=== PATIENT | male | born 1950 | race Caucasian/White ===

== ENCOUNTER 2025-05-12 12:28 | Outpatient (CLI) | payer OTHER, SELFPAY ==
--- OUTSIDE RECORDS SUMMARY | 2025-05-12 13:42 | XMS_ITS | Clinical Summary ---
Author Organization [facility] Address [address] [place] [address] Care Team Providers Care Air Export Coordinator Name Role Phone Unavailable Primary Care Provider Unavailabl e Source Comments [facility],non-owned Affiliates and Associated Physician Practices is amultiple site organization consisting of ambulatory clinics and hospital sitesin [place], [place]. This disclosure is being madepursuant to the Care Everywhere program and may not contain all information available regarding this patient. Last updated 18.[facility] Clear Advantage Collar Allergies No known active allergies Immunizations Immunization Administration Dates Next Due INFLUENZA VACCINE, HIGH-DOSE , QUADR. (FLUZONE HIGH-DOSE QUADRIVALENT; 65Y+), 0.7 ML (HD-IIV4) 04/28/2017 Social History Tobacco Use Types Packs/Day Years Used Date Smoking Tobacco: Never Assessed Sex and Gender Information Value Date Recorded Sex Assigned at Not on file Legal Sex Male 10:41 AM CDT Gender Identity Not on file Sexual Orientation Not on file Plan of Treatment Health Maintenance Due Date Last Done Comments COLOGUARD (AGES 45-75) - COL ON CA SCREENING 1951 COLON MONITORING 1951 COLONOSCOPY - COLON CA SCREENING 1951 CT COLONOGRAPHY - COLON CA SCREENING 1950 Colorectal Cancer Screening 1951 FIT - COLON CA SCREENING 1951 FLEX SIG - COLON CA SCREENING 1951 LIPID TESTING 1950 HEPATITIS C SCREENING 01/14/1969 DTAP/TDAP/TD VACCINES (1 - Tdap) 1970 PNEUMOCOCCAL VACCINE 50+ (1 of 1 - PCV) 2001 ZOSTER VACCINE (1 of 2) 2001 DEPRESSION SCREENING 07/10/2024 COVID-19 VACCINE (2023-2 5 season) 2025 INFLUENZA VACCINE (#1) 2025 04/28/2017 Respiratory Syncytial Virus (RSV) Vaccine Pt: or over 60 yrs (1 - 1-dose 75+ series) 2026 HEPATITIS B VACCINE Aged Out No longe r eligible based on patient's age to complete this topic HIB VACCINE Aged Out No longer eligi ble based on patient's age to complete this topic HPV VACCINE Aged Out No longer eligi ble based on patient's age to complete this topic MENINGOCOCCAL (Group B) VACC INE SHARED DECISION-MAKING Aged Out No longer eligibl e based on patient's age to complete this topic MENINGOCOCCAL GROUPS A/C/Y/W VACCINE Aged Out No longer eligible b ased on patient's age to complete this topic Insurance [facility] [place] Address: [address] [address]
--- OUTSIDE RECORDS SUMMARY | 2025-05-12 13:42 | XMS_ITS | Clinical Summary ---
Author Organization [facility] Address [address] [place] [address] Care Team Providers Care Associate Entertainment Editor Name Role Phone Chris Pearl MD Primary Care Provider [phone] Allergies No known active allergies Medications lovastatin (MEVACOR) 20 mg tablet Take 20 mg by mouth daily. 11 03/14/2018 Active atenolol (TENORMIN) 50 mg tablet Take 50 mg by mouth daily. 11 03/14/2018 Active NIFEDIPINE XL 90 mg 24 hr tablet Take 90 mg by mouth daily 6 2019 Active losartan-hydroc hlorothiazide (HYZAAR) 100-25 mg per tablet Take 1 tablet by mouth daily 6 02/02/2019 Active acetaminophen-c odeine (TYLENOL with CODEINE #3) 300-30 mg per tablet TAKE 1 TABLET THREE TIMES A DAY FOR 5 DAYS 04/07/2020 Active ascorbic acid, vitamin C, 500 mg capsule VITAMIN C CAPSULE 04/19/2019 Active cholecalciferol (VITAMIN D-3) 5,000 unit capsule Take by mouth 04/19/2019 Activ e cyclobenzaprine (FLEXERIL) 10 mg tablet TAKE 1 TABLET BY MOUTH THREE TIMES A DAY FOR 15 DAYS 04/07/2020 Active metaxalone (SKELAXIN) 800 mg tablet Take 800 mg by mouth 3 (three) times a day 05/28/2020 Active metaxalone (SKELAXIN) 800 mg tablet Take by mouth 04/19/2019 Activ e metFORMIN (GLUCOPHAGE) 500 mg tablet TAKE 2 TABLETS BY MOUTH IN THE MORNING AND 1 TABLET AT BEDTIME 06/09/2020 Active metFORMIN (GLUCOPHAGE) 500 mg tablet Take by mouth every 8 hours 04/19/2019 Active methylPREDNISol one (MEDROL DOSEPACK) 4 mg Dosepack TAKE 6 TABLETS ON DAY 1 DIRECTED ON PACKAGE AND DECREASE BY 1 TAB EACH DAY FOR A TOTAL OF 6 DAYS 04/28/2020 Active zinc sulfate (ZINCATE) 220 (50) mg capsule ZINC CAPSULE 04/19/2019 Active atenoloL (TENORMIN) 25 mg tablet 06/17/2020 Active Active Problems Problem Noted Date Diagnosed Date Intervertebral disc disorder with radiculopathy of lumbar region 06/18/2020 Sciatica 09/10/2018 Cervicalgia 10/03/2013 Essential (primary) hypertension 05/21/2012 Hyperlipidemia, unspecified 05/21/2012 Obesity 05/21/2012 Shortness of breath 05/21/2012 Chest pain, unspecified 07/10/1959 Immunizations Immunization Administration Dates Next Due Influenza, Quadrivalent, Hig h Dose, Preservative Free, Intrr 05/22/2020 Influenza, Quadrivalent, Spl it, Preservative Free, Intramuscular 05/24/2018 Influenza, Trivalent, High D ose, Split, Preservative Free, Intramuscular 04/09/2019 Influenza, Trivalent, Preservative Free, Intramu scular 04/09/2013 Influenza, Unspecified 04/28/2017 Surgical History Surgery Date Site/Laterality Comments BACK SURGERY Back Surgery - (Added by TW Conv) [place] NEUROPLASTY &/TRANSPOS MEDIAN NRV CARPAL TUNNE Neuroplasty Decompression Median Nerve At Carpal Tunnel - (Added by TW Conv) Medical History Medical History Date Comments Personal history of other di seases of the circulatory system History of hypertension - (A dded by TW Conv) Personal history of other di seases of the musculoskeletal system and connective tissue Personal history of osteopor osis - (Added by TW Conv) Chest pain CHF (congestive heart failure) (HCC) Type 2 diabetes mellitus Hypertension Family History Medical History Relation Name Comments Heart disease Father Heart disease Mother Heart disease Other Family history of cardiac disorder - (Added by TW Conv) Relation Name Status Comments Father Mother Other Social History Tobacco Use Types Packs/Day Years Used Date Smoking Tobacco: Never Smokeless Tobacco: Never Alcohol Use Standard Drinks/Week Comments Never 0 (1 standard drink = 0.6 oz pur e alcohol) AUDIT-C Answer Date Recorded Frequency of Alcohol Consumption Never 06/18/2020 Average Number of Drinks Not on file 020 Frequency of Binge Drinking Not on file 06/09 Personal Safety Answer Date Recorded Getting School Help Needed Not on file Sex and Gender Information Value Date Recorded Sex Assigned at Not on file Legal Sex Male 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 Gender Identity Not on file Sexual Orientation Not on file Last Filed Vital Signs Vital Sign Reading Time Taken Comments Blood Pressure 132/76 06/18/2020 9:17 AM MULTI SPINDLE OPERATOR Pulse 112 06/18/2020 9:17 AM MULTI SPINDLE OPERATOR Temperature 36.8 C (98.2 F) 04/07/2018 7:21 PM CDT Respiratory Rate 17 04/08/2018 2:30 AM CDT Oxygen Saturation 99% 04/08/2018 2:54 AM CDT Inhaled Oxygen Concentration - - Weight 99.8 kg (220 lb) 06/18/2020 9:17 AM MULTI SPINDLE OPERATOR Height 172.7 cm (5' 8) 06/18/2020 9:17 AM MULTI SPINDLE OPERATOR Body Mass Index 33.45 06/18/2020 9:17 AM MULTI SPINDLE OPERATOR Plan of Treatment Not on file Insurance MEDICARE [facility] CHOICE PLUS MEDICARE [facility] CHOICE PLUS Care Teams Associate Entertainment Editor Relationship Specialty Start Date End Date Chris Pearl MD [address] [place] [address] PCP - General Family Medicine 05/19/20
== END 2025-05-12 12:29 | disposition home or self-care (01) ==
LOC: ANHAUDIO 12:28
PROVIDERS: Visit Provider Otolaryngology
DX: H90.42 Sensorineural hearing loss, unilateral, left ear, with unrestricted hearing on the contralateral side (principal)
CPT/HCPCS: 92557; 92567

== ENCOUNTER 2025-05-19 12:04 | Outpatient (CLI) | payer OTHER, SELFPAY ==
--- OUTSIDE RECORDS SUMMARY | 2025-03-17 05:34 | XMS_ITS | Continuity of Care Document ---
Author Organization [facility] Address [address] [place] [address] Phone Care Team Providers Care Hadoop Software Engineer Name Role Phone Rojelio MURPHY, FACC, Jarad Unavailable Unavailab le Allergies, Adverse Reactions, Alerts Substance Reaction Status Criticality atorvastatin leg pain Active No Information Medications Medication Instructions Dosage Effective Dates (start - stop) Status Comments Rybelsus 3 mg tablet take 1 tablet by oral route every day - Active Nexlizet 180 mg-10 mg tablet take 1 tablet by oral route every day 1.00 tablet - Active Breztri Aerosphere 160 mcg-9mcg-4.8mcg/ac tuation HFA aerosol inhaler - Active meloxicam 15 mg tablet - Active losartan 100 mg-hydrochlorothia zide 25 mg tablet TAKE 1 TABLET BY MOUTH EVERY DAY - Active glipizide 5 mg tablet TAKE 1 TABLET BY MOUTH TWICE A DAY - Active albuterol sulfate HFA 90 mcg/actuation aerosol inhaler inhale 2 puff by inhalation route every 4 - 6 hours as needed 180 MCG - Active atenolol 50 mg tablet take 1 tablet by oral route every day 50 MG - Active albuterol sulfate HFA 90 mcg/actuation aerosol inhaler - No Longer Active atenolol 50 mg tablet - No Longer Active Rybelsus 14 mg tablet TAKE 1 TABLET BY MOUTH EVERY DAY IN THE MORNING - No Longer Active tamsulosin 0.4 mg capsule - No Longer Active amoxicillin 500 mg capsule TAKE 1 CAPSULE BY MOUTH 4 TIMES A DAY - No Longer Active Rybelsus 7 mg tablet - No Longer Active Procedures Procedure Date Complex e/m visit add on OFFICE/OUTPATIENT VISIT, EST HT MUSCLE IMAGE SPECT, MULT CARDIOVASCULAR STRESS TEST Technetium TC 99m sestamibi Advance Directives Directive Yes / No Effective Date File Name No Information Encounters Encounter Description Practice Location Reason(s) For Visit Diagnoses Date Provider Providers Copied on Encounter [facility] , [address] [place] [address], [id number] , tel: [phone] [facility] No Information Rojelio Abraham. [address] [place], [place] [address], [place], [id number] , [place]. tel: [phone] OFFICE/OUTPA TIENT VISIT, EST [facility] , [address] [place] [address], [id number] , tel: [phone] [facility] FOLLOW UP (chief complaint) Body mass index [BMI] 36.0-36.9, adultChest painDyspneaHTNHyperl ipidemiaDM type II Rojelio Abraham. [facility] [address] , [place], [place], [id number] , [place]. tel: [phone] Referring Provider: Fernando Torres, [address] [facility], [place], [address]. tel:[phone] [facility], [address] [place] [address], [id number] , tel: [phone] [facility] No Information Rojelio Abraham. [facility] [place] , [place], [place], [id number] , . tel: [phone] Referring Provider: Fernando Torres, [address] [facility], [place], [address]. tel:[phone] [facility], [address] [place] [address], [id number] , tel: [phone] [facility] No Information Rojelio Abraham. [address] , [place], [place], [id number] , [place]. tel: [phone] [facility], [address] [place] [address], [id number] , tel: [phone] [facility] Rastafari Chest painDyspneaHTNHyperl ipidemiaObesitySleep apnea Rojelio Abraham. [facility] [place], [place], [id number] , . tel: [phone] [facility], [address] [place] [address], [id number] , tel: [phone] [facility] DM type II Rojelio Cheryimeghna. [facility] [place], [place], [id number] , . tel: [phone] Family History Family Member Type Diagnosis Age At Onset Mother Problem (finding) Cardiovascular disease Father Problem (finding) Hypertension Mother Problem (finding) Hypertension Payers Payer name Insurance type Covered constitution party ID Lynne dietz(s) [facility] [id number] CI [id number] Social History Type Description Quantity Date Captured Comments Alcohol Use Details Unknown Caffeine Use Details Unknown Tobacco Use Status No Information Smoking Status No Information Sex Male Chief Complaint And Reason For Visit No Information Reason For Referral Reason For Referral No Information Plan Of Treatment Date Type Action Status Goal Dietary manageme nt education, guidance, and counseling completed Future Order: Radiology Order Ec hocardiogram, Complete Transthoracic ([id number]), Ordered on: Ordered History Of Present Illness Encounter Date Complaint History Of Prese nt Illness FOLLOW UP Functional Status Date Functional Assessmen t No Information Instructions Date Instruction Additional Infor debra Dietary management e ducation, guidance, and counseling Related to Body mass index [BMI] 36.0-36.9, adult Assessments Type Assessment Date No Information Patient Care Teams Name Effective Dates (start - stop) Status Members No Information
--- OUTSIDE RECORDS SUMMARY | 2025-05-19 12:35 | XMS_ITS | Clinical Summary ---
Author Organization [facility] Address [address] [place] [address] Care Team Providers Care Beauty School Instructor Name Role Phone Unavailable Primary Care Provider Unavailabl e Source Comments [facility],non-owned Affiliates and Associated Physician Practices is amultiple site organization consisting of ambulatory clinics and hospital sitesin [place], [place], [place]. This disclosure is being madepursuant to the Care Everywhere program and may not contain all information available regarding this patient. Last updated 18.[facility] [employer] Allergies No known active allergies Immunizations Immunization [...] patient's age to complete this topic Insurance [facility]
--- OUTSIDE RECORDS SUMMARY | 2025-05-19 12:35 | XMS_ITS | Clinical Summary ---
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 Gender Identity Not on file Sexual Orientation Not on file Last Filed Vital Signs Vital Sign Reading Time Taken Comments Blood Pressure 132/76 06/18/2020 9:17 AM DELICATESSEN GOODS STOCK CLERK Pulse 112 06/18/2020 9:17 AM DELICATESSEN GOODS STOCK CLERK Temperature 36.8 C (98.2 F) 04/07/2018 7:21 PM CDT Respiratory Rate 17 04/08/2018 2:30 AM CDT Oxygen Saturation 99% 04/08/2018 2:54 AM CDT Inhaled Oxygen Concentration - - Weight 99.8 kg (220 lb) 06/18/2020 9:17 AM DELICATESSEN GOODS STOCK CLERK Height 172.7 cm (5' 8) 06/18/2020 9:17 AM DELICATESSEN GOODS STOCK CLERK Body Mass Index 33.45 06/18/2020 9:17 AM DELICATESSEN GOODS STOCK CLERK Plan of Treatment Not on file Insurance MEDICARE [facility] CHOICE PLUS MEDICARE [facility] CHOICE PLUS Care Teams Factory Superintendent Relationship Specialty Start Date End Date Chris Pearl MD [address] [place] [address] PCP - General Family Medicine 05/19/20
== END 2025-05-19 12:05 | disposition home or self-care (01) ==
LOC: ANHAUDIO 12:04
PROVIDERS: Visit Provider Otolaryngology
DX: H91.92 Unspecified hearing loss, left ear (principal); H91.20 Sudden idiopathic hearing loss, unspecified ear
CPT/HCPCS: 92557; 92567

== ENCOUNTER 2025-06-23 10:30 | Outpatient (CLI) | payer OTHER, SELFPAY ==
--- NOTE | ~2025-06-23 | MR_ITS ---
EXAMINATION: MR IAC wo/w con DATE: 06/23/2025 11:28 INDICATION: Sudden idiopathic hearing loss TECHNIQUE: Magnetic resonance imaging (MRI) of the brain and brainstem was performed without and with 20 mL Multihance intravenous contrast. Sequences included sagittal and axial T1-weighted FSE, axial diffusion-weighted FS EPI, axial T2*-weighted GRE, axial T2-weighted FLAIR Propeller, axial T2-weighted Propeller, small kfwpt-aq-eohp coronal FIESTA, small pqcqv-zg-adqx coronal T1- weighted FSE, and small aewsy-ij-lquu axial T1-weighted SPGR. Postcontrast sequences included axial T1-weighted FSE, small aogvp-md-tzni coronal T1- weighted FSE, and small kfeat-ns-lywr axial T1-weighted SPGR. Apparent diffusion coefficient (ADC) maps were created. COMPARISON: None. FINDINGS: There are no areas of restricted diffusion to suggest acute infarction. No intracranial hemorrhage or abnormal intracranial mass lesion. There are a few small scattered foci of nonspecific increased T2-weighted signal intensity in the cerebral white matter, predominantly involving the deep and periventricular white matter which is well within normal limits for age and likely sequela of chronic small vessel ischemic disease. There are no intraparenchymal signal abnormalities seen on the other pulse sequences. The ventricles are symmetric and normal in size. Normal seventh/eighth cranial nerve complexes. Basilar cisterns are patent. No cerebellopontine angles masses. No evidence of mastoid or middle ear fluid. There are no abnormal extra-axial fluid collections. Flow voids are seen in the cerebral arteries on the T2-weighted sequences consistent with their expected patency. Mild mucosal thickening the bilateral ethmoid sinuses and small mucous retention cyst in the left maxillary sinus. Visualized orbits and soft tissues are unremarkable. There are no areas of abnormal enhancement on the post contrast images. IMPRESSION: 1. Normal aging brain with mild scattered white matter T2 hyperintensity consistent with chronic small vessel ischemic disease. Otherwise unremarkable MRI of the brain and internal auditory canals with no acute intracranial process, abnormal enhancing brain lesions or etiology for reported hearing loss. Reviewed, dictated and finalized at location A. SHEAR OPERATOR IMPRESSION: 1. Normal aging brain with mild scattered white matter T2 hyperintensity consis tent with chronic small vessel ischemic disease. Otherwise unremarkable MRI of the brain and internal auditory canals with no acute intracranial process, abno rmal enhancing brain lesions or etiology for reported hearing loss.
== END 2025-06-23 10:31 | disposition home or self-care (01) ==
LOC: MICIMG 10:31
PROVIDERS: PCP Otolaryngology; Visit Provider Otolaryngology
DX: H91.20 Sudden idiopathic hearing loss, unspecified ear (principal); H83.09 Labyrinthitis, unspecified ear
CPT/HCPCS: 70553; A9577